=== PATIENT | female | born 1990 | race American Indian/Alaskan Native ===

== ENCOUNTER 2017-08-10 21:51 | Emergency (ER) | payer MEDICAID, OTHER ==
[2017-08-10] MEDS ORDERED: MOTRIN PO ONE (23:09)
[2017-08-10] MEDS ORDERED: TYLENOL ONE (23:12)
[2017-08-10] MEDS ORDERED: TYLENOL PO ONE (23:22)
[2017-08-10 23:36] LABS: Basophils % (Auto) 0.4 % (0.0-1.8); Eosinophils % (Auto) 0.3 % (0.0-4.3); Hematocrit 36.9 % (30.3-42.9); Hemoglobin 12.2 gm/dl (10.1-14.3); Lymphocytes # (Auto) 3.7 K/mm3 (1.2-5.4); Lymphocytes % (Auto) 33.2 % (13.4-35.0); Mean Corpuscular HGB Conc 33 % (30-34); Mean Corpuscular Hemoglobin 31 pg (28-32); Mean Corpuscular Volume 94 fl (79-97); Monocytes # (Auto) 0.6 K/mm3 (0.0-0.8); Monocytes % (Auto) 5.5 % (0.0-7.3); Platelet Count 265 K/mm3 (140-440); Red Blood Count 3.94 M/mm3 (3.65-5.03); Red Cell Distribution Width 13.9 % (13.2-15.2)
[2017-08-10 23:45] LABS: Bacteria,Urine 2+ /HPF (Negative); Bilirubin,Urine NEG (Negative); Blood,Urine SM (Negative); Color,Urine Yellow (Yellow); Mucus,Urine 3+ /HPF
[2017-08-10 23:50] LABS: BUN/Creatinine Ratio 26; Blood Urea Nitrogen 13 mg/dL (7-17); Calcium 9.3 mg/dL (8.4-10.2); Hemolysis Index 0
[2017-08-10 23:58] LABS: Amphetamine Screen,Urine PRESUMPTIVE NEGATIVE; Benzodiazepines Screen,Urine PRESUMPTIVE NEGATIVE; Cocaine Screen,Urine PRESUMPTIVE NEGATIVE; Methadone Screen,Urine PRESUMPTIVE NEGATIVE; Opiate Screen,Urine PRESUMPTIVE NEGATIVE
[2017-08-11 00:27] LABS: Cannabinoid Screen,Urine PRESUMPTIVE POSITIVE
[2017-08-11] MEDS ORDERED: BENADRYL PO ONE ×4 (02:30→22:38)
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
[2017-08-11] MEDS ORDERED: ZOFRAN ODT PO ONE ×2 (10:05→15:37)
[2017-08-11] MEDS ORDERED: MACROBID PO ONE (18:03)
--- NOTE | 2017-08-11 19:02 | Ultrasound Report ---
FINAL REPORT EXAM: US OB < = 14 WEEKS FETUS HISTORY: preg quant 3000s lower abd cramping TECHNIQUE: Ultrasound obstetrical transabdominal PRIORS: None. FINDINGS: There is gestational sac present within the uterus. Mean sac diameter 6.5 centimeters corresponding to estimated gestational age of 5 weeks 3 days by sac size No pole is identified at this time. There is a yolk sac present. Right ovary is 3.2 x 2.6 x 2.2 centimeters Left ovary is 1.9 x 1.3 x 1.4 centimeters No abnormal mass or cyst identified No free fluid seen in the cul-de-sac IMPRESSION: Gestational sac and yolk sac identified consistent with very early intrauterine gestation. No pole identified at this time.
--- NOTE | 2017-08-11 19:11 | Ultrasound Report ---
FINAL REPORT EXAM: US OB TRANSVAGINAL HISTORY: preg quant 3000s lower abd cramping TECHNIQUE: Ultrasound obstetrical transvaginal PRIORS: None. FINDINGS: here is gestational sac present within the uterus. Mean sac diameter 6.5 centimeters corresponding to estimated gestational age of 5 weeks 3 days by sac size No pole is identified at this time. There is a yolk sac present. Right ovary is 3.2 x 2.6 x 2.2 centimeters Left ovary is 1.9 x 1.3 x 1.4 centimeters No abnormal mass or cyst identified No free fluid seen in the cul-de-sac IMPRESSION: Gestational sac and yolk sac identified consistent with very early intrauterine gestation. No pole identified at this time.
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
[2017-08-12] MEDS ORDERED: ZOFRAN ODT ONE (21:52)
[2017-08-12] MEDS ORDERED: BENADRYL PO ONE (21:52)
[2017-08-12] MEDS ORDERED: BENADRYL PO PRN (22:48)
[2017-08-12] MEDS: ZOFRAN ODT PO PRN (22:49)
[2017-08-13] MEDS: ZOFRAN ODT PO PRN (09:06)
[2017-08-13] MEDS: PRENATAL VITAMIN PO SCH (09:45)
[2017-08-14] MEDS: PRENATAL VITAMIN PO SCH (12:50)
[2017-08-14] MEDS: ZOFRAN ODT PO PRN (12:50)
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
[2017-08-15] MEDS: PRENATAL VITAMIN PO SCH ×2 (09:20→11:26)
[2017-08-15 09:21] VITALS: BP 112/71
[2017-08-15] MEDS: ZOFRAN ODT PO PRN (09:29)
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
--- NOTE | 2017-08-15 14:41 | Emergency Department Report ---
Blank Doc - Documentation Documentation: I was asked to assist the patient for possible discharge. Patient has been seen by psychiatric team. They recommended that patient can be discharged home and to follow-up as an outpatient. Patient is calm, denied any suicidal or homicidal ideation. No visual or auditory hallucination. Patient will be discharged home to follow-up as an outpatient.
== END 2017-08-15 14:47 ==
LOC: EEVIPCON 21:51 → ED 21:51
DX: O26.891 Other specified pregnancy related conditions, first trimester (principal); S61.512A Laceration without foreign body of left wrist, initial encounter; O99.331 Smoking (tobacco) complicating pregnancy, first trimester; F17.200 Nicotine dependence, unspecified, uncomplicated; Z79.899 Other long term (current) drug therapy; Z3A.01 Less than 8 weeks gestation of pregnancy; F32.9 Major depressive disorder, single episode, unspecified; X78.8XXA Intentional self-harm by other sharp object, initial encounter; Y93.89 Activity, other specified; Y92.89 Other specified places as the place of occurrence of the external cause; Y99.8 Other external cause status
CPT/HCPCS: 36415; 76801; 76817; 80048; 80307; 81001; 84702; 84703; 85025; 99284; G0480; 80320; Q0162

== ENCOUNTER 2017-12-29 11:46 | Outpatient (CLI) | payer MEDICAID | END 2017-12-29 11:47 | disposition home or self-care (01) | LOC: VAS 11:46 | PROVIDERS: ATTEND Advanced Practice Midwife | DX: I83.812 Varicose veins of left lower extremity with pain (principal) ==

== ENCOUNTER 2018-11-06 20:52 | Emergency (ER) | payer MEDICAID, OTHER, SELFPAY ==
[2018-11-06 21:04] VITALS: BP 110/58
--- NOTE | 2018-11-06 21:05 | Emergency Department Report ---
Blank Doc - Documentation Documentation: This is a 27-year-old female that presents with sore throat. This initial assessment/diagnostic orders/clinical plan/treatment(s) is/are subject to change based on patient's health status, clinical progression and re- assessment by fellow clinical providers in the ED. Further treatment and workup at subsequent clinical providers discretion. Patient/guardians urged not to elope from the ED as their condition may be serious if not clinically assessed and managed. Initial orders include: 1- Patient sent to [facility] for further evaluation and treatment 2- strep swab
--- NOTE | 2018-11-06 23:40 | Emergency Department Report ---
ED General Adult HPI - General Chief complaint: Sore Throat Stated complaint: THROAT PAIN Time Seen by Provider: 11/06/18 21:05 Source: patient Mode of arrival: Ambulatory Limitations: No Limitations - History of Present Illness Initial comments: Patient is a 27-year-old [place] female with no past medical history presents to the ED with a complaint of acute onset persistent severe sore throat with dysphagia for the last 3 days. Patient also complains of headache and painful lymph nodes in the neck. Patient denies dizziness, cough, nausea, vomiting, diarrhea, change in vision, nasal and sinus congestion or abdominal pain or shortness of breath and chest pain. Patient states that other people at work has similar symptoms MD Complaint: Sore throat -: Sudden, days(s) (3) Location: mouth Radiation: non-radiation Severity scale (0 -10): 5 Quality: aching, sharp Consistency: constant Improves with: none Worsens with: eating Associated Symptoms: denies other symptoms. denies: confusion, chest pain, cough, fever/chills, headaches, loss of appetite, nausea/vomiting, seizure, shortness of breath, weakness, other Treatments Prior to Arrival: none - Related Data Home Medications Medication Instructions Recorded Confirmed Last Taken Vit No.130/Iron/Folic 1 each PO QDAY 08/20/15 04/03/18 04/01/18 [ Tablet] Previous Rx's Medication Instructions Recorded Last Taken Type Ferrous Sulfate [Feosol 325 MG tab] 325 mg PO BID #60 tablet 04/04/18 Unknown Rx Vit-Fe Fumar-FA [ 1 each PO QDAY #30 tablet 04/04/18 Unknown Rx Vitamin] Azithromycin [Zithromax TAB] 250 mg PO QDAY #6 tablet 11/06/18 Unknown Rx Ibuprofen [Motrin 600 MG tab] 600 mg PO Q6HR #30 tablet 11/06/18 Unknown Rx Lidocaine Viscous 2% 10 ml MM Q6HR PRN #120 ml 11/06/18 Unknown Rx Allergies Allergy/AdvReac Type Severity Reaction Status Date / Time No Known Allergies Allergy Verified 10/22/15 15:05 ED Review of Systems ROS: Stated complaint: THROAT PAIN Other details as noted in HPI Comment: All other systems reviewed and negative Constitutional: denies: chills, fever Eyes: denies: eye pain, eye discharge, vision change ENT: throat pain. denies: ear pain Respiratory: denies: cough, shortness of breath, wheezing Cardiovascular: denies: chest pain, palpitations Endocrine: no symptoms reported Gastrointestinal: denies: abdominal pain, nausea, diarrhea Genitourinary: denies: urgency, dysuria, discharge Musculoskeletal: denies: back pain, joint swelling, arthralgia Skin: denies: rash, lesions Neurological: denies: headache, weakness, paresthesias Psychiatric: denies: anxiety, depression Hematological/Lymphatic: denies: easy bleeding, easy bruising ED Past Medical Hx - Past Medical History Previous Medical History?: No Hx Hypertension: No Hx Congestive Heart Failure: No Hx Diabetes: No Hx Deep Vein Thrombosis: No Hx Renal Disease: No Hx Sickle Cell Disease: No Hx Seizures: No Hx Psychiatric Treatment: Yes (DEPRESSION) Hx Asthma: No Hx COPD: No Hx HIV: No - Surgical History Past Surgical History?: Yes Hx Cholecystectomy: Yes Hx Appendectomy: Yes Additional Surgical History: left hip replacement - Social History Smoking Status: Current Every Day Smoker Substance Use Type: None - Medications Home Medications: Home Medications Medication Instructions Recorded Confirmed Last Taken Type Vit No.130/Iron/Folic 1 each PO QDAY 08/20/15 04/03/18 04/01/18 History [ Tablet] Ferrous Sulfate [Feosol 325 MG tab] 325 mg PO BID #60 tablet 04/04/18 Unknown Rx Vit-Fe Fumar-FA [ 1 each PO QDAY #30 tablet 04/04/18 Unknown Rx Vitamin] Azithromycin [Zithromax TAB] 250 mg PO QDAY #6 tablet 11/06/18 Unknown Rx Ibuprofen [Motrin 600 MG tab] 600 mg PO Q6HR #30 tablet 11/06/18 Unknown Rx Lidocaine Viscous 2% 10 ml MM Q6HR PRN #120 ml 11/06/18 Unknown Rx ED Physical Exam - General Limitations: No Limitations General appearance: alert, in no apparent distress - Head Head exam: Present: atraumatic, normocephalic, normal inspection - Eye Eye exam: Present: normal appearance, PERRL, EOMI. Absent: scleral icterus, conjunctival injection, nystagmus, periorbital swelling, periorbital tenderness Pupils: Present: normal accommodation - ENT ENT exam: Present: normal exam, mucous membranes moist, TM's normal bilaterally, normal external ear exam, other (Erythematous oropharyngeal areas with thick white tonsilar exudates) - Neck Neck exam: Present: normal inspection, full ROM, lymphadenopathy. Absent: tenderness - Respiratory Respiratory exam: Present: normal lung sounds bilaterally. Absent: respiratory distress, wheezes, rhonchi, chest wall tenderness, accessory muscle use, prolonged expiratory - Cardiovascular Cardiovascular Exam: Present: regular rate, normal rhythm, normal heart sounds. Absent: systolic murmur, diastolic murmur, rubs, gallop - GI/Abdominal GI/Abdominal exam: Present: soft, normal bowel sounds. Absent: hyperactive bowel sounds, hypoactive bowel sounds, organomegaly, mass - Rectal Rectal exam: Present: deferred - Extremities Exam Extremities exam: Present: normal inspection, full ROM, normal capillary refill - Back Exam Back exam: Present: normal inspection, full ROM. Absent: tenderness, CVA tenderness (R), CVA tenderness (L), muscle spasm, paraspinal tenderness, clive tebral tenderness - Neurological Exam Neurological exam: Present: alert, oriented X3, CN II-XII intact, normal gait, reflexes normal - Psychiatric Psychiatric exam: Present: normal affect, normal mood - Skin Skin exam: Present: warm, dry, intact, normal color. Absent: rash ED Course Vital Signs 11/06/18 21:01 Temperature 99.0 F Pulse Rate 115 H Respiratory 20 Rate Blood Pressure 110/58 O2 Sat by Pulse 99 Oximetry - Reevaluation(s) Reevaluation #1: 11/06/18 23:39 Patient is alert and oriented 3 and is not in distress but tachycardic in triage. Rapid strep test is negative. Patient was discharged home on medications given the sensitivity of the rapid strep test, the patient was empirically treated for strep pharyngitis based on the symptoms and physical exam findings. Patient was advised to follow-up with her primary care physician in 7-10 days for reevaluation. Patient is alert and attentive to the ED immediately if symptoms get worse. ED Medical Decision Making - Medical Decision Making Patient is alert and oriented 3 and is not in distress but tachycardic in triage. Rapid strep test is negative. Patient was discharged home on medications given the sensitivity of the rapid strep test, the patient was empirically treated for strep pharyngitis based on the symptoms and physical exa m findings. Patient was advised to follow-up with her primary care physician in 7-10 days for reevaluation. Patient is alert and attentive to the ED immediately if symptoms get worse. - Differential Diagnosis Acute strep pharyngitis; Acute tonsillitis; Acute viral pharyngitis Critical care attestation.: If time is entered above; I have spent that time in minutes in the direct care of this critically ill patient, excluding procedure time. ED Disposition Clinical Impression: Acute bacterial tonsillitis Acute pharyngitis Qualifiers: Pharyngitis/tonsillitis etiology: unspecified etiology Qualified Code(s): J02.9 - Acute pharyngitis, unspecified Disposition: TO HOME OR SELFCARE Is pt being admited?: No Does the pt Need Aspirin: No Condition: Stable Instructions: Pharyngitis (ED), Tonsillitis (ED) Additional Instructions: Take medications with food, drink plenty of fluids and follow up with your primary care physician 5-7 days for reevaluation. Return to the ED immediately if symptoms get worse. Prescriptions: Lidocaine Viscous 2% 10 ml MM Q6HR PRN #120 ml PRN Reason: Pain , Severe (7-10) Ibuprofen [Motrin 600 MG tab] 600 mg PO Q6HR #30 tablet Azithromycin [Zithromax TAB] 250 mg PO QDAY #6 tablet Referrals: PRIMARY CARE, [Primary Care Provider] - 3-5 Days Time of Disposition: 23:42 Print Language: SLOVENIAN
== END 2018-11-06 23:57 | disposition home or self-care (01) ==
LOC: ED 20:52
DX: J03.90 Acute tonsillitis, unspecified (principal); F32.9 Major depressive disorder, single episode, unspecified; F17.200 Nicotine dependence, unspecified, uncomplicated; Z79.1 Long term (current) use of non-steroidal anti-inflammatories (NSAID); Z79.899 Other long term (current) drug therapy; Z90.49 Acquired absence of other specified parts of digestive tract; Z96.642 Presence of left artificial hip joint
CPT/HCPCS: 87116; 87430; 99283